=== PATIENT | female | born 1995 | race Caucasian/White ===

== ENCOUNTER 2017-06-23 20:56 | Emergency (ER) | payer OTHER ==
[2017-06-23] MEDS ORDERED: ONDANSETRON 4 MG (ODT) TAB ONE (22:08)
[2017-06-23] MEDS ORDERED: ACETAMINOPHEN 500 MG TAB ONE (22:28)
--- NOTE | 2017-06-23 23:01 | ER ---
Nurse's Notes [facility] Name: Devorah Shepard Age: 22 yrs Sex: Female : 1995 Arrival Date: 06/23/2017 Time: 20:57 Bed 25 Private MD: Diagnosis: Headache;Nausea and vomiting Presentation: 06/23 21:01 Presenting complaint: Patient states: Nausea with vomiting X3 times. pt c/o headache, ak1 lightheaded, dizzy and body aches started at noon today. Transition of care: patient was not received from another setting of care. Onset of symptoms was June 23, 2017. Care prior to arrival: None. 21:01 Method Of Arrival: Ambulatory ak1 21:01 Acuity: NEHEMIAH 3 ak1 Triage Assessment: 21:03 Headache History: Denies prior headaches. General: Appears in no apparent distress. ak1 Behavior is cooperative. Neuro: Level of Consciousness is awake, alert, obeys commands, Oriented to person, place, time, situation, Moves all extremities. Gait is steady, Speech is normal. 21:30 Pain: Also complains of nausea. 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 - Social history:: Smoking status: Patient/guardian denies using tobacco. Screenin:30 Abuse screen: Denies threats or abuse. Denies injuries from another. Nutritional kr2 screening: No deficits noted. Tuberculosis screening: No symptoms or risk factors identified. Fall Risk None identified. Assessment: 21:30 General: Appears in no apparent distress. uncomfortable, obese, well groomed, well kr2 developed, Behavior is calm, cooperative, appropriate for age. Pain: Complains of pain in head. Pain: Pain does not radiate. Pain currently is 7 out of 10 on a pain scale. Pain began gradually, Is continuous, Alleviated by nothing. Neuro: Level of Consciousness is awake, alert, obeys commands, Oriented to person, place, time, situation, Appropriate for age Moves all extremities. Speech is normal, Facial symmetry appears normal. Cardiovascular: Capillary refill < 3 seconds in bilateral fingers Patient's skin is warm and dry. Respiratory: Airway is patent Respiratory effort is even, unlabored, Respiratory pattern is regular, symmetrical. GI: Abdomen is flat, non-distended, Reports nausea, vomiting. : No signs and/or symptoms were reported regarding the genitourinary system. EENT: Nares are clear Oral mucosa is moist. Derm: Skin is intact, is healthy with good turgor, Skin is pink, warm \T\ dry. Musculoskeletal: Circulation, motion, and sensation intact. Vital Signs: 21:03 BP 125 / 81; Pulse 84; Resp 18; Temp 98.4(O); Pulse Ox 100% on R/A; Weight 120.2 kg ak1 (R); Height 5 ft. 4 in. (162.56 cm) (R); Pain 6/10; 22:45 BP 126 / 78; Pulse 84; Resp 17; Pulse Ox 100% on R/A; kr2 21:03 Body Mass Index 45.49 (120.20 kg, 162.56 cm) ak1 ED Course: 20:57 Patient arrived in ED. al2 21:03 Triage completed. ak1 21:03 Arm band placed on Patient placed in an exam room, on a stretcher, Patient notified of ak1 wait time. 21:17 Darian Robles PA is PHCP. cp 21:17 Ed Allen MD is Attending Physician. cp 21:22 Edith Cummins, CARL is Primary Nurse. kr2 21:30 Patient has correct armband on for positive identification. Bed in low position. Call kr2 light in reach. Side rails up X2. 23:10 No provider procedures requiring assistance completed. Patient did not have IV access kr2 during this emergency room visit. Administered Medications: 21:50 Drug: Zofran 4 mg Route: PO; kr2 23:06 Follow up: Response: No adverse reaction; Nausea is decreased kr2 22:38 Drug: Tylenol 1000 mg Route: PO; kr2 23:06 Follow up: Response: No adverse reaction; Pain is decreased kr2 Outcome: 23:00 Discharge ordered by . cp 23:10 Discharged to home ambulatory, with family. kr2 23:10 Condition: good 23:10 Discharge instructions given to patient, family, Instructed on discharge instructions, follow up and referral plans. medication usage, Demonstrated understanding of instructions, follow-up care, medications, Prescriptions given X 1. 23:11 Patient left the ED. kr2 Signatures: Kenia Ford RN RN ak1 Darian Robles PA PA cp Reaves, Karey, RN RN kr2 Judy Milligan2
--- NOTE | 2017-06-23 23:01 | EDPHYS ---
Physician Documentation [facility] Name: Devorah Shepard Age: 22 yrs Sex: Female : 1995 Arrival Date: 06/23/2017 Time: 20:57 Bed 25 Private MD: ED Physician Ed Allen HPI: 06/23 21:35 This 22 yrs old Female presents to ER via Ambulatory with complaints of cp Headache, Nausea/Vomiting. 21:35 The patient complains of pain to the top of head and forehead and back of head. cp 21:35 The patient describes the headache as aching. Onset: The symptoms/episode cp began/occurred today. Associated signs and symptoms: Pertinent positives: nausea, vomiting, body aches, sore throat. 21:35 Headache History: The patient has had previous headaches and this one is less severe cp than previous episodes. 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 - Social history:: Smoking status: Patient/guardian denies using tobacco. ROS: 21:42 Constitutional: Positive for body aches, Negative for fever. cp 21:42 Eyes: Negative for injury, pain, redness, and discharge. cp 21:42 ENT: Positive for sore throat, Negative for drainage from ear(s), ear pain, difficulty swallowing, difficulty handling secretions. 21:42 Neck: Negative for stiffness. 21:42 Cardiovascular: Negative for chest pain. 21:42 Respiratory: Positive for cough, Negative for shortness of breath, wheezing. 21:42 Abdomen/GI: Positive for nausea and vomiting, Negative for diarrhea, constipation. 21:42 Skin: Negative for cellulitis, rash. 21:42 Neuro: Positive for dizziness, headache, Negative for altered mental status, weakness. 21:42 All other systems are negative. Exam: 21:48 Constitutional: The patient appears in no acute distress, alert, awake, non-toxic, well cp developed, well nourished, obese. 21:48 Head/Face: Normocephalic, atraumatic. cp 21:48 Eyes: Periorbital structures: appear normal, Pupils: equal, round, and reactive to light and accomodation, Extraocular movements: intact throughout, Conjunctiva: normal, no exudate, no injection, Sclera: no appreciated abnormality, Lids and lashes: appear normal, bilaterally. 21:48 ENT: External ear(s): are unremarkable, Ear canal(s): are normal, clear, TM's: dullness, bilaterally, Nose: is normal, Mouth: Lips: moist, Oral mucosa: moist, Posterior pharynx: is normal, airway is patent, no erythema, no exudate. 21:48 Neck: ROM/movement: is normal, is supple, without pain, no range of motions limitations, no nuchal rigidity. 21:48 Chest/axilla: Inspection: normal, Palpation: is normal, no crepitus, no tenderness. 21:48 Cardiovascular: Rate: normal, Rhythm: regular. 21:48 Respiratory: the patient does not display signs of respiratory distress, Respirations: normal, no use of accessory muscles, no retractions, no splinting, no tachypnea, labored breathing, is not present, Breath sounds: are clear throughout, no decreased breath sounds, no stridor, no wheezing. 21:48 Abdomen/GI: Inspection: obese Bowel sounds: active, all quadrants, Palpation: abdomen is soft and non-tender, in all quadrants, rebound tenderness, is not appreciated, voluntary guarding, is not appreciated, involuntary guarding, is not appreciated. 21:48 Back: pain, is absent, ROM is normal. 21:48 Skin: cellulitis, is not appreciated, no rash present. 21:48 Neuro: Orientation: to person, place \T\ time. Mentation: lucid, able to follow commands, Cerebellar function: is grossly normal, Motor: moves all fours, strength is normal, Sensation: no obvious gross deficits. Vital Signs: 21:03 BP 125 / 81; Pulse 84; Resp 18; Temp 98.4(O); Pulse Ox 100% on R/A; Weight 120.2 kg ak1 (R); Height 5 ft. 4 in. (162.56 cm) (R); Pain 6/10; 22:45 BP 126 / 78; Pulse 84; Resp 17; Pulse Ox 100% on R/A; kr2 21:03 Body Mass Index 45.49 (120.20 kg, 162.56 cm) ak1 MDM: 21:17 Patient medically screened. 22:00 Differential diagnosis: meningitis, meningoencephalitis, migraine, otitis, sinusitis, cp tension headache, dehydration, strep throat, influenza. 22:55 Data reviewed: vital signs, nurses notes, lab test result(s), and as a result, I will cp discharge patient. 22:55 Counseling: I had a detailed discussion with the patient and/or guardian regarding: the cp historical points, exam findings, and any diagnostic results supporting the discharge/admit diagnosis, lab results, to return to the emergency department if symptoms worsen or persist or if there are any questions or concerns that arise at home. Response to treatment: the patient's symptoms have markedly improved after treatment, VSS. Headache and nausea markedly improved. No vomiting observed in ED. Will discharge to home for continued monitoring. 06/23 21:29 Order name: Influenza Screen (a \T\ B) 06/23 21:29 Order name: Strep 06/23 22:00 Order name: Influenza Screen (A ; Complete Time: 22:29 EDMS 06/23 22:29 Interpretation: Reviewed. 06/23 22:01 Order name: Group A Streptococcus Rapid Sc; Complete Time: 22:29 EDMS 06/23 22:29 Interpretation: Reviewed. 06/23 22:24 Order name: Urine Dipstick--Ancillary (enter results) [facility] 06/23 22:24 Order name: Urine --Ancillary (enter results) [facility] 06/23 21:29 Order name: Urine Dipstick-Ancillary (obtain specimen); Complete Time: 21:50 06/23 21:29 Order name: Urine Test (obtain specimen); Complete Time: 21:50 06/23 22:29 Order name: PO challenge; Complete Time: 23:00 cp Administered Medications: 21:50 Drug: Zofran 4 mg Route: PO; kr2 23:06 Follow up: Response: No adverse reaction; Nausea is decreased kr2 22:38 Drug: Tylenol 1000 mg Route: PO; kr2 23:06 Follow up: Response: No adverse reaction; Pain is decreased kr2 Disposition: 06/24 19:22 Co-signature as Attending Physician, Ed Allen MD. gs Disposition: 06/23/17 23:00 Discharged to Home. Impression: Headache, Nausea and vomiting. - Condition is Stable. - Discharge Instructions: General Headache Without Cause, Nausea and Vomiting. - Prescriptions for Zofran 4 mg Oral Tablet - take 1 tablet by ORAL route every 12 hours As needed; 20 tablet. - Medication Reconciliation Form, Thank You Letter, Antibiotic Education, Prescription Opioid Use form. - Follow up: Private Physician; When: 2 - 3 days; Reason: Recheck today's complaints. - Problem is new. - Symptoms have improved. Signatures: Dispatcher [employer] EDMS Kenia Ford, RN RN ak1 Darian Robles PA PA cp Starr, Gregory, MD MD Edith Cummins RN RN kr2
[2017-06-23 23:44] LABS: Urine Blood TRACE (NEG); Urine Glucose NEGATIVE (NEG); Urine Protein NEGATIVE (NEG)
== END 2017-06-23 23:11 | disposition home or self-care (01) ==
LOC: ER 20:56
DX: R11.2 Nausea with vomiting, unspecified (principal); Z88.2 Allergy status to sulfonamides
CPT/HCPCS: 81003; 81025; 87070; 87081; 87804; 99283

== ENCOUNTER 2018-05-26 22:00 | Emergency (ER) | payer OTHER ==
[2018-05-26] MEDS ORDERED: METHOCARBAMOL 1,000 MG/10 ML VIAL IV ONE (23:06)
[2018-05-26] MEDS ORDERED: DEXAMETHASONE 4 MG/ML VIAL ONE (23:06)
[2018-05-26] MEDS ORDERED: NA CHLORIDE 0.9% 100 ML IV ONE (23:07)
[2018-05-26] MEDS ORDERED: KETOROLAC 30 MG/ML INJ ONE (23:07)
[2018-05-26 23:13] LABS: Absolute Lymphocytes (CBC) 4.6 K/uL (0.7-4.9); Absolute Monocytes 0.9 K/uL (0.1-1.3); Absolute Neutrophil 7.8 K/uL (1.8-8.0); Basophils % 0.8 % (0-1.3); Eosinophils % 0.8 % (0-4.4); Hematocrit 39.2 % (36.0-45.0); Lymphocytes % 34.3 % (15.3-44.8); MPV 7.2 fL (7.6-11.3); Monocytes % 6.3 % (3.3-12.3); RBC Red Blood Cell Count 4.72 M/uL (3.86-4.86)
[2018-05-26 23:29] LABS: Potassium 3.7 mmol/L (3.5-5.1)
--- NOTE | 2018-05-27 00:51 | ER ---
Nurse's Notes [facility] Name: Devorah Shepard Age: 23 yrs Sex: Female : 1995 Arrival Date: 05/26/2018 Time: 22:01 Bed 5 Private MD: Diagnosis: Radiculopathy, lumbar region;Low back pain Presentation: 05/26 22:11 Presenting complaint: Patient states: My doctor told me if my leg pain got worse that I ed1 should come to the ER. For about a week now my legs have been burning and hurting. Tonight I got nauseated and lightheaded. Transition of care: patient was not received from another setting of care. Onset of symptoms was May 19, 2018. Risk Assessment: Do you want to hurt yourself or someone else? Patient reports no desire to harm self or others. Initial Sepsis Screen: Does the patient meet any 2 criteria? No. Patient's initial sepsis screen is negative. Does the patient have a suspected source of infection? No. Patient's initial sepsis screen is negative. Care prior to arrival: None. 22:11 Method Of Arrival: Ambulatory ed1 22:11 Acuity: NEHEMIAH 4 ed1 Triage Assessment: 22:13 General: Appears in no apparent distress. Behavior is calm, cooperative. Pain: ed1 Complains of pain in right leg and left leg Pain currently is 6 out of 10 on a pain scale. Quality of pain is described as burning, Pain began 1 week ago. EENT: No signs and/or symptoms were reported regarding the EENT system. Neuro: Level of Consciousness is awake, alert, obeys commands, Oriented to person, place, time, situation, Gait is steady. Cardiovascular: Denies chest pain, Heart tones S1 S2 present. Respiratory: Airway is patent Respiratory effort is even, unlabored, Respiratory pattern is regular, symmetrical, Breath sounds are clear bilaterally. GI: Abdomen is non-distended, Bowel sounds present X 4 quads. Abd is soft and non tender X 4 quads. Reports nausea. : No signs and/or symptoms were reported regarding the genitourinary system. Derm: Skin is pink, warm \T\ dry. Musculoskeletal: Circulation, motion, and sensation intact. Range of motion: intact in all extremities, Reports pain in right leg and left leg since 1 week ago. Pain is 6 out of 10 on a pain scale. 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 - Social history:: Smoking status: Patient/guardian denies using tobacco. - Ebola Screening: : Patient negative for fever greater than or equal to 101.5 degrees Fahrenheit, and additional compatible Ebola Virus Disease symptoms Patient denies exposure to infectious person Patient denies travel to an Ebola-affected area in the 21 days before illness onset. Screenin:51 Abuse screen: Denies threats or abuse. Denies injuries from another. Nutritional ed1 screening: No deficits noted. Tuberculosis screening: No symptoms or risk factors identified. Fall Risk None identified. Assessment: 22:51 Reassessment: See triage assessment. ed1 23:22 Reassessment: Patient appears in no apparent distress at this time. No changes from ed1 previously documented assessment. Patient and/or family updated on plan of care and expected duration. Pain level reassessed. Patient is alert, oriented x 3, equal unlabored respirations, skin warm/dry/pink. Patient states symptoms have not improved. 05/27 00:25 Reassessment: Patient appears in no apparent distress at this time. Patient and/or ed1 family updated on plan of care and expected duration. Pain level reassessed. Patient is alert, oriented x 3, equal unlabored respirations, skin warm/dry/pink. Patient states feeling better. Patient states symptoms have improved. 01:03 Reassessment: Patient appears in no apparent distress at this time. Patient and/or ed1 family updated on plan of care and expected duration. Pain level reassessed. Patient is alert, oriented x 3, equal unlabored respirations, skin warm/dry/pink. Patient denies pain at this time. Patient states feeling better. Patient states symptoms have improved. Vital Signs: 05/26 22:13 BP 132 / 97; Pulse 108; Resp 18; Temp 97.6(O); Pulse Ox 100% on R/A; Weight 117.93 kg ed1 (R); Height 5 ft. 4 in. (162.56 cm); Pain 6/10; 23:22 BP 104 / 58; Pulse 103; Resp 18; Pulse Ox 100% on R/A; Pain 6/10; ed1 02/18 00:25 BP 103 / 59; Pulse 77; Resp 17; Pulse Ox 100% on R/A; Pain 2/10; ed1 01:03 BP 100 / 54; Pulse 76; Resp 17; Pulse Ox 100% on R/A; Pain 0/10; ed1 02 22:13 Body Mass Index 44.63 (117.93 kg, 162.56 cm) ed1 ED Course: 05/26 22:01 Patient arrived in ED. am2 22:05 Brittni Tinoco, CARL is Primary Nurse. ed1 22:11 Niranjan Frausto PA is PHCP. jr8 22:11 Renaldo Lopez MD is Attending Physician. jr8 22:13 Triage completed. ed1 22:13 Arm band placed on. ed1 22:51 Patient has correct armband on for positive identification. Placed in gown. Bed in low ed1 position. Call light in reach. Adult w/ patient. Pulse ox on. NIBP on. 22:51 Missed attempt(s): 20 gauge in right antecubital area. Bleeding controlled, band aid ed1 applied, catheter tip intact. 23:01 Inserted saline lock: 22 gauge in right antecubital area, using aseptic technique. ed1 Blood collected. By Patricia Olivares RN. 05/27 00:08 Patient moved to [place] via wheelchair. kw1 00:15 CT completed. Patient tolerated procedure well. Patient moved back from IN. kw1 00:22 CT Lumbar Spine Wo Con In Process Unspecified. EDMS 01:03 No provider procedures requiring assistance completed. IV discontinued, intact, ed1 bleeding controlled, No redness/swelling at site. Pressure dressing applied. Administered Medications: 05/26 23:03 Drug: TORadol 30 mg Route: IVP; Site: right antecubital; ed1 18 00:06 Follow up: Response: No adverse reaction; No change in condition ed1 05/26 23:04 Drug: Decadron - Dexamethasone 10 mg Route: IVP; Site: right antecubital; ed1 05/27 00:05 Follow up: Response: No adverse reaction ed1 05/26 23:04 Dru grams of (Robaxin 1 grams, NS 0.9% 100 ml) Route: IVPB; Infused Over: 1 hrs; ed1 Site: right antecubital; 05/27 00:06 Follow up: Response: No adverse reaction; No change in condition; IV Status: Completed ed1 infusion 00:53 Drug: fentaNYL (PF) 75 mcg Route: IVP; Site: right antecubital; ed1 01:02 Follow up: Response: No adverse reaction; Pain is decreased ed1 Outcome: 00:50 Discharge ordered by MD. sarmiento 01:03 Discharged to home ambulatory, with significant other. ed1 01:03 Condition: good 01:03 Discharge instructions given to patient, Instructed on discharge instructions, follow up and referral plans. medication usage, Demonstrated understanding of instructions, follow-up care, medications, Prescriptions given X 3. 01:04 Patient left the ED. ed1 Signatures: Dispatcher [employer] EDMS Brittni Tinoco RN RN ed1 Niranjan Frausto PA PA jr8 Brittany Grijalva [facility] Sridevi Renee kw1
--- NOTE | 2018-05-27 00:52 | EDPHYS ---
Physician Documentation [facility] Name: Devorah Shepard Age: 23 yrs Sex: Female : 1995 Arrival Date: 05/26/2018 Time: 22:01 Bed 5 Private MD: ED Physician Renaldo Lopez HPI: 05/26 22:47 This 23 yrs old Female presents to ER via Ambulatory with complaints of Leg jr8 Pain. 22:47 Patient stated that she has been experiencing bilateral leg pain, numbness, tingling, jr8 burning sensation for the past couple of weeks. Has had increase in pain over the past day or so. 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 Denies saddle anesthesia, bowel or bladder dysfunction, or weakness. 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 - Social history:: Smoking status: Patient/guardian denies using tobacco. - Ebola Screening: : Patient negative for fever greater than or equal to 101.5 degrees Fahrenheit, and additional compatible Ebola Virus Disease symptoms Patient denies exposure to infectious person Patient denies travel to an Ebola-affected area in the 21 days before illness onset. ROS: 22:47 Eyes: Negative for injury, pain, redness, and discharge, ENT: Negative for injury, jr8 pain, and discharge, Neck: Negative for injury, pain, and swelling, Cardiovascular: Negative for chest pain, palpitations, and edema, Respiratory: Negative for shortness of breath, cough, wheezing, and pleuritic chest pain, Abdomen/GI: Negative for abdominal pain, nausea, vomiting, diarrhea, and constipation, Back: Negative for injury and pain, Skin: Negative for injury, rash, and discoloration. 22:47 MS/extremity: Positive for pain, tingling, of the right leg and left leg. 22:47 Neuro: Positive for numbness, tingling, of the right leg and left leg, Negative for altered mental status, dizziness, gait disturbance, headache, loss of consciousness, seizure activity, syncope. Exam: 22:47 Eyes: Pupils equal round and reactive to light, extra-ocular motions intact. Lids and jr8 lashes normal. Conjunctiva and sclera are non-icteric and not injected. Cornea within normal limits. Periorbital areas with no swelling, redness, or edema. ENT: Nares patent. No nasal discharge, no septal abnormalities noted. Tympanic membranes are normal and external auditory canals are clear. Oropharynx with no redness, swelling, or masses, exudates, or evidence of obstruction, uvula midline. Mucous membranes moist. Neck: Trachea midline, no thyromegaly or masses palpated, and no cervical lymphadenopathy. Supple, full range of motion without nuchal rigidity, or vertebral point tenderness. No Meningismus. Cardiovascular: Regular rate and rhythm with a normal S1 and S2. No gallops, murmurs, or rubs. Normal PMI, no JVD. No pulse deficits. Respiratory: Lungs have equal breath sounds bilaterally, clear to auscultation and percussion. No rales, rhonchi or wheezes noted. No increased work of breathing, no retractions or nasal flaring. Abdomen/GI: Soft, non-tender, with normal bowel sounds. No distension or tympany. No guarding or rebound. No evidence of tenderness throughout. Skin: Warm, dry with normal turgor. Normal color with no rashes, no lesions, and no evidence of cellulitis. MS/ Extremity: Pulses equal, no cyanosis. Neurovascular intact. Full, normal range of motion. Mild tenderness to legs from thighs down Neuro: Awake and alert, GCS 15, oriented to person, place, time, and situation. Cranial nerves II-XII grossly intact. Motor strength 5/5 in all extremities. Sensory grossly intact. Cerebellar exam normal. Normal gait. 22:47 Back: pain, that is moderate, of the left low back and right low back, ROM is painful, normal spinal alignment noted. Vital Signs: 22:13 BP 132 / 97; Pulse 108; Resp 18; Temp 97.6(O); Pulse Ox 100% on R/A; Weight 117.93 kg ed1 (R); Height 5 ft. 4 in. (162.56 cm); Pain 6/10; 23:22 BP 104 / 58; Pulse 103; Resp 18; Pulse Ox 100% on R/A; Pain 6/10; ed1 02/18 00:25 BP 103 / 59; Pulse 77; Resp 17; Pulse Ox 100% on R/A; Pain 2/10; ed1 01:03 BP 100 / 54; Pulse 76; Resp 17; Pulse Ox 100% on R/A; Pain 0/10; ed1 05/26 22:13 Body Mass Index 44.63 (117.93 kg, 162.56 cm) ed1 MDM: 05/26 22:11 Patient medically screened. [facility] 05/27 00:49 Data reviewed: vital signs, nurses notes, lab test result(s), radiologic studies, CT [facility] scan, and as a result, I will discharge patient. Data interpreted: Pulse oximetry: on room air is 100 %. Interpretation: normal. Counseling: I had a detailed discussion with the patient and/or guardian regarding: the historical points, exam findings, and any diagnostic results supporting the discharge/admit diagnosis, lab results, radiology results, the need for outpatient follow up, a neurologist, to return to the emergency department if symptoms worsen or persist or if there are any questions or concerns that arise at home. Response to treatment: the patient's symptoms have markedly improved after treatment. 05/26 22:37 Order name: CBC with Diff [facility] 05/26 22:37 Order name: Basic Metabolic Panel [facility] 05/26 22:38 Order name: CBC with Automated Diff; Complete Time: 23:43 [facility] 05/26 22:38 Order name: Basic Metabolic Panel; Complete Time: 23:43 [facility] 05/26 22:54 Order name: Urine Dipstick--Ancillary (enter results) [facility] 05/26 22:54 Order name: Urine --Ancillary (enter results) [facility] 05/26 22:37 Order name: IV; Complete Time: 23:04 [facility] 05/26 22:55 Order name: Urine Dipstick-Ancillary [facility] 05/26 22:55 Order name: Urine --Ancillary [facility] 05/26 23:44 Order name: CT Lumbar Spine Wo Con [facility] 05/26 22:38 Order name: Urine Dipstick-Ancillary (obtain specimen); Complete Time: 22:53 ed1 05/26 22:38 Order name: Urine Test (obtain specimen); Complete Time: 22:53 ed1 Administered Medications: 05/26 23:03 Drug: TORadol 30 mg Route: IVP; Site: right antecubital; ed1 05/27 00:06 Follow up: Response: No adverse reaction; No change in condition ed1 05/26 23:04 Drug: Decadron - Dexamethasone 10 mg Route: IVP; Site: right antecubital; ed1 05/27 00:05 Follow up: Response: No adverse reaction ed1 05/26 23:04 Dru grams of (Robaxin 1 grams, NS 0.9% 100 ml) Route: IVPB; Infused Over: 1 hrs; ed1 Site: right antecubital; 05/27 00:06 Follow up: Response: No adverse reaction; No change in condition; IV Status: Completed ed1 infusion 00:53 Drug: fentaNYL (PF) 75 mcg Route: IVP; Site: right antecubital; ed1 01:02 Follow up: Response: No adverse reaction; Pain is decreased ed1 Disposition: 02:45 Co-signature as Attending Physician, Renaldo Lopez MD. pkl Disposition: 05/27/18 00:50 Discharged to Home. Impression: Radiculopathy, lumbar region, Low back pain. - Condition is Stable. - Discharge Instructions: Back Pain, Adult, Lumbosacral Radiculopathy, Back Exercises, [id number], Heat Therapy. - Prescriptions for Mobic 7.5 mg Oral Tablet - take 1 tablet by ORAL route once daily take with food; 20 tablet. Zanaflex 4 mg Oral Tablet - take 1 tablet by ORAL route every 8 hours As needed; 20 tablet. Medrol (Checo) 4 mg Oral Tablets, Dose Pack - take 1 tablet by ORAL route as directed - follow package instructions; 1 packet. - Medication Reconciliation Form, Thank You Letter, Antibiotic Education, Prescription Opioid Use form. - Follow up: Private Physician; When: Tomorrow; Reason: Recheck today's complaints, Continuance of care, Re-evaluation by your physician. - Problem is new. - Symptoms have improved. Signatures: Dispatcher [employer] EDMS Renaldo Lopez MD MD pkBrittni Garcia RN RN ed1 Niranjan Frausto PA PA jr8 Corrections: (The following items were deleted from the chart) 01:04 00:50 05/27/2018 00:50 Discharged to Home. Impression: Radiculopathy, lumbar region; ed1 Low back pain. Condition is Stable. Forms are Medication Reconciliation Form, Thank You Letter, Antibiotic Education, Prescription Opioid Use. Follow up: Private Physician; When: Tomorrow; Reason: Recheck today's complaints, Continuance of care, Re-evaluation by your physician. Problem is new. Symptoms have improved. jr8
[2018-05-27] MEDS ORDERED: FENTANYL CITR 100 MCG/2 ML ONE (01:03)
[2018-05-27 05:18] LABS: Urine Blood 2+ (NEG); Urine Glucose NEGATIVE (NEG); Urine Protein NEGATIVE (NEG); Urine pH 5.5 (5.0-7.0)
--- NOTE | 2018-05-27 21:41 | RAD REPORT ---
EXAM DESCRIPTION: CT - Spine Lumbar Wo Con - 05/27/2018 6:46 am CLINICAL HISTORY: 23 years Female Pain; Lower back pain; Numbness/tingling COMPARISON: None. TECHNIQUE: Images were obtained in axial, sagittal and coronal planes. This exam was performed according to our departmental dose-optimization program, which includes autom ated exposure control, adjustment of the mA and/or kV according to patient size and/or less of iterat jade reconstruction technique. FINDINGS: Height of the vertebral bodies is intact. Satisfactory alignment articular facets. Posterior elements and transverse process intact all levels. No sacral fracture. No abnormalities sacroiliac joints bilaterally. Right paracentral bulging L3-L4 intervertebral disc. Mild central bulging L4-L5 intervertebral disc. IMPRESSION: 1. No acute fracture or subluxation seen. 2. Mild central bulging L4-L5 intervertebral disc. Mild right paracentral bulging L3-L4 intervertebra l disc. Electronically signed by Chelo Rodriguez MD 05/27/2018 12:30 AM DRAMATIC READER Due to temporary technical issues with the PACS/Fluency reporting system, reports are being signed by the in house radiologist as a courtesy to ensure prompt reporting. The interpreting radiologist is f ully responsible for the content of the report.
== END 2018-05-27 01:04 | disposition home or self-care (01) ==
LOC: ER 22:00
DX: M54.16 Radiculopathy, lumbar region (principal); M79.605 Pain in left leg; M79.604 Pain in right leg; E28.2 Polycystic ovarian syndrome; Z88.2 Allergy status to sulfonamides
CPT/HCPCS: 36415; 72131; 80048; 81003; 81025; 85025; 96365; 96375; 99284; J2800; J3010